=== PATIENT | male | born 1950 | race Caucasian/White ===

== ENCOUNTER 2020-05-23 11:52 | Emergency (ER) | payer OTHER ==
[2020-05-23 12:08] VITALS: TEMP 98.4; BMI 36.5
--- NOTE | 2020-05-23 12:12 | PDOC ---
History of Present Illness - General Chief Complaint: Pain Stated Complaint: FOOT PAIN,HTN Time Seen by Provider: 05/23/20 11:59 History Source: Patient Exam Limitations: No Limitations - History of Present Illness Initial Comments: 05/23/20 12:00 [id number] with h/o HTN (used to be on lisinopril but has not been taking it x1 month because he does like his PCP and stopped going, and has since run out of medication) and recurrent bronchitis (once every spring and once every fall, and always clears up with Z-pack) who was instructed by to come into the ED for swelling and burning sensation in both of his feet for the past two weeks, in the setting of mild persistent BELTRAN for the past month and high BP measured at (provider called in to the ED and stated up to 170s systolic). The patient additionally notes an estimated 10-20 lb weight gain over the past month or so (has not weighed himself but states he is retaining water). Also notes itching in both ankles and a bit in the LUE with occasional small red bumps. Denies any recent calf pain, f/c/n/v/d/c, chest pain, palpitations, back pain, abdominal pain, lightheadedness, orthopnea, cough, headache, n/t/w focally, or other issues. Past History - Medical History Allergies/Adverse Reactions: Allergies Allergy/AdvReac Type Severity Reaction Status Date / Time No Known Allergies Allergy Verified 05/23/20 11:52 Home Medications: Ambulatory Orders Diphenhydramine HCl/Zinc Acet [Benadryl 2% Cream] 1 applic TP DAILY PRN #1 tube 05/23/20 Lisinopril [Prinivil -] 40 mg PO DAILY #30 tablet 05/23/20 Diphenhydramine [Benadryl -] 50 mg NR BID PRN #14 capsule 05/24/20 Prednisone [Prednisone 50 MG TABLETS] 50 mg PO DAILY #3 tablet 05/24/20 COPD: No HTN: Yes - Psycho-Social/Smoking History Smoking History: Never smoked Have you smoked in the past 12 months: No Review of Systems - Review of Systems Able to Perform ROS?: Yes Comments:: 05/23/20 12:19 GEN: no fever, chills, malaise, or generalized weakness HEENT: no ear pain, congestion, sore throat, vision change, or eye pain CV: no chest pain, palpitations, lightheadedness, or syncope RESP: BELTRAN, no orthopnea, wheezing, or cough GI: no abdominal pain, nausea, vomiting, diarrhea, constipation, or rectal bleed : no dysuria, hematuria, or discharge MSK: ankle and foot swelling, no muscle weakness or pain, no joint swelling or pain NEURO: no headache, vertigo, numbness, tingling, or focal weakness PSYCH: no SI, HI, or behavior change SKIN: itching, no jaundice, or unexplained bruises ROS otherwise negative except as noted in HPI *Physical Exam - Vital Signs 05/23/20 12:20 Initial Vital Signs Temp Pulse Resp BP Pulse Ox 98.4 F 93 H 20 173/112 H 98 05/23/20 11:52 05/23/20 11:52 05/23/20 11:52 05/23/20 11:52 05/23/20 11:52 - Physical Exam 05/23/20 12:20 GENERAL: well-appearing, pleasant, intelligent, A/Ox4, no distress, answers que stions appropriately, obese HEENT: PERRLA, EOMI, moist mucous membranes NECK/BACK: no midline ttp, no spinal step-off or deformity, no hematoma, full ROM, neck supple CARDIOVASCULAR: regular rate/rhythm, no MGR, strong peripheral pulses, capillary refill <2 seconds, extremities wwp, BLE 2+ pitting edema to distal calf LUNGS/RESPIRATORY: no respiratory distress, CTAB GI/ABDOMEN: abdomen protuberant, symmetric [id number], normoactive BS, soft, no ttp, no midline pulsatile masses : no CVA tenderness MSK/EXTREMITIES: no muscle atrophy, no acute deformity, no calf tenderness, negative Bladimir's sign, calves are equal circumference bilaterally SKIN: distal BLE and proximal LUE with 1mm diameter occasional scattered red lesions which he states are itchy, no overlying excoriations, warm and dry, no pallor, no jaundice, no pathologic-appearing bruising, no skin breakdown, no cuts NEUROLOGICAL: GCS 15, CN II-XII grossly intact, 5/5 strength proximally and distally, no facial droop Heart Score/ECG Review #1 05/23/20 12:21 Normal sinus rhythm, rate 89, normal axis and intervals, no ischemic ST-T changes ED Treatment Course - LABORATORY CBC & Chemistry Diagram: 05/23/20 12:30 05/23/20 12:30 Medical Decision Making - Medical Decision Making 05/23/20 13:08 Pt with h/o CHF who p/w SOB, cough, orthopnea same as their prior CHF. Initial Vital Signs Temp Pulse Resp BP Pulse Ox 98.4 F 93 H 20 173/112 H 98 05/23/20 11:52 05/23/20 11:52 05/23/20 11:52 05/23/20 11:52 05/23/20 11:52 DDX IBNLT: most likely CHF exacerbation, less likely PNA/bronchitis as this does not normally cause BLE edema, less likely but possible anemia. The patient has no chest pain but given poorly controlled HTN and BLE edema will work up for ACS and MARA. Unlikely malignancy, unlikely PE without history or risk factors. Possible allergic reaction e.g. contact dermatitis explaining the itching and small scattered raised lesions . The patient does not fit the clinical picture of pulmonary edema given that he looks well and has normal lung exam and only mild BELTRAN x1 month. RAD/CHEST X-RAY PORTABLE* AP portable chest: Shortness of breath A single apical lordotic view reveals clear well aerated lungs, normal mediastinum and sharp angles. The bones and soft tissues are intact. An acute process is not seen. Impression: No acute chest pathology. No change of an adverse nature since 02/08/2020. Provider Orders Category Date Time Status ELECTROCARDIOGRAM [CARD] Stat Cardiology 05/23/20 12:01 Completed EKG needed NOW Care 05/23/20 12:03 Completed BNP [N-TERMINAL BNP] Stat Lab 05/23/20 12:30 Completed CBC WITH DIFFERENTIAL Stat Lab 05/23/20 12:30 Completed COMP METABOLIC PANEL Stat Lab 05/23/20 12:30 Completed MAGNESIUM Stat Lab 05/23/20 12:30 Completed TROPONIN I (DFP) Stat Lab 05/23/20 12:30 Completed Lisinopril [Prinivil] Medication 05/23/20 13:38 Discontinued 40 mg PO ONCE ONE predniSONE [Deltasone -] Medication 05/23/20 13:39 Discontinued 40 mg .ROUTE .STK-MED ONE predniSONE [Deltasone -] Medication 05/23/20 13:36 Discontinued 40 mg PO ONCE ONE CHEST X-RAY PORTABLE* [RAD] Stat Radiology 05/23/20 12:01 Completed Medications Discontinued Medications Generic Name Dose Route Start Last Admin Trade Name Laxmi PRN Reason Stop Dose Admin Lisinopril 40 mg 05/23/20 13:38 05/23/20 13:42 Prinivil PO 05/23/20 13:39 40 mg ONCE ONE Administration Prednisone 40 mg 05/23/20 13:36 05/23/20 13:42 Deltasone - PO 05/23/20 13:37 40 mg ONCE ONE Administration Prednisone Confirm 05/23/20 13:39 Deltasone - Administered 05/23/20 13:40 Dose 40 mg .ROUTE .STK-MED ONE Lab Results WBC 7.1 K/mm3 (4.0-10.8) 05/23/20 12:30 RBC 5.16 M/mm3 (4.00-5.60) 05/23/20 12:30 Hgb 16.7 GM/dl (11.7-16.9) 05/23/20 12:30 Hct 49.7 % (35.4-49) H 05/23/20 12:30 MCV 96.3 fl (80-96) H 05/23/20 12:30 MCH 32.3 pg (25.7-33.7) 05/23/20 12:30 MCHC 33.5 g/dl (32.0-35.9) 05/23/20 12:30 RDW 12.7 % (11.9-15.9) 05/23/20 12:30 Plt Count 140 K/MM3 (134-434) 05/23/20 12:30 MPV 11.2 fl (7.5-11.1) H 05/23/20 12:30 Absolute Neuts (auto) 3.6 K/mm3 05/23/20 12:30 Neutrophils % 50.2 % (42.8-82.8) 05/23/20 12:30 Lymphocytes % 26.7 % (8-40) 05/23/20 12:30 Monocytes % 7.6 % (3.8-10.2) 05/23/20 12:30 Eosinophils % 14.5 % (0-4.5) H D 05/23/20 12:30 Basophils % 1.0 % (0-2.0) 05/23/20 12:30 Sodium 137 mmol/L (136-145) 05/23/20 12:30 Potassium 4.1 mmol/L (3.5-5.1) 05/23/20 12:30 Chloride 105 mmol/L (98-107) 05/23/20 12:30 Carbon Dioxide 24 mmol/L (21-32) 05/23/20 12:30 Anion Gap 8 MMOL/L (8-16) 05/23/20 12:30 BUN 10.0 mg/dl (7-18) 05/23/20 12:30 Creatinine 1.2 mg/dl (0.55-1.3) 05/23/20 12:30 Est GFR (CKD-EPI)AfAm 71.58 05/23/20 12:30 Est GFR (CKD-EPI)NonAf 61.76 05/23/20 12:30 Random Glucose 133 mg/dl (74-106) H 05/23/20 12:30 Calcium 8.9 mg/dl (8.5-10) 05/23/20 12:30 Magnesium 1.6 mg/dL (1.8-2.4) L 05/23/20 12:30 Total Bilirubin 1.1 mg/dl (0.2-1) H 05/23/20 12:30 AST 39 U/L (15-37) H 05/23/20 12:30 ALT 43 U/L (13-61) 05/23/20 12:30 Alkaline Phosphatase 58 U/L (45-117) 05/23/20 12:30 Troponin I < 0.03 ng/ml (0.00-0.05) 05/23/20 12:30 B-Natriuretic Peptide 22.7 pg/ml (5-125) 05/23/20 12:30 Total Protein 6.6 g/dl (6.4-8.2) 05/23/20 12:30 Albumin 3.8 g/dl (3.4-5.0) 05/23/20 12:30 The patient does not appear to have emergency-level CHF symptoms or workup at this time. He is aware, though, that his symptoms may be d/t prolonged uncontrolled HTN and he is amenable to following up with [facility], as he does not want to return to his old PCP. I give him a prescription for his antihypertensive medications which he was on previously and he will take these in the meantime and make an ER follow-up appointment with [facility]. Specific return precautions are discussed and they will come back to the ER if necessary. Discharge - Discharge Information Problems reviewed: Yes Clinical Impression/Diagnosis: Leg swelling, BELTRAN (dyspnea on exertion) HTN (hypertension) Qualifiers: Hypertension type: unspecified Qualified Code(s): I10 - Essential (primary) hypertension Condition: Stable Disposition: HOME - Admission No - Additional Discharge Information Prescriptions: Diphenhydramine HCl/Zinc Acet [Benadryl 2% Cream] 1 applic TP DAILY PRN #1 tube PRN Reason: Allergies Lisinopril [Prinivil -] 40 mg PO DAILY #30 tablet - Follow up/Referral Referrals: [facility] [place] [Provider Group] - Patient Discharge Instructions Patient Printed Discharge Instructions: DI for Peripheral Edema -- Bilateral Additional Instructions: You were seen in the ER for leg swelling, shortness of breath on exertion, and high blood pressure. We did a full set of lab work, an electrocardiogram, and a chest x-ray. Fortunately, there are no concerning abnormalities at this time and we do believe you are safe to go home today. We are sending a one-month prescr iption for your lisinopril to your pharmacy, so please pick this up and take it exactly as prescribed (should be the exact same prescription you were on before). We are giving you referral information for the internal medicine clinic in [place], so please call the number provided [facility] and make a follow-up appointment. If you tell them you were seen in the ER and need quick follow-up, they should be able to see you very soon. If you have any new or worsening symptoms, such as chest pain, palpitations, shortness of breath at rest, inability to lay down flat due to shortness of breath, or worsening leg swelling, come back to the ER. - Post Discharge Activity Work/Back to School Note: Back to Work
[2020-05-23 12:42] LABS: EOS % 14.5 % (0-4.5); HEMATOCRIT 49.7 % (35.4-49); HEMOGLOBIN 16.7 GM/dl (11.7-16.9); LYMPH % 26.7 % (8-40); MCH 32.3 pg (25.7-33.7); MCHC 33.5 g/dl (32.0-35.9); MEAN CELL VOLUME 96.3 fl (80-96); MEAN PLT VOLUME 11.2 fl (7.5-11.1); MONO % 7.6 % (3.8-10.2); NEUT % 50.2 % (42.8-82.8); PLATELET COUNT 140 K/MM3 (134-434); RBC 5.16 M/mm3 (4.00-5.60); RDW 12.7 % (11.9-15.9); WHITE BLOOD COUNT 7.1 K/mm3 (4.0-10.8)
[2020-05-23 13:02] LABS: ALBUMIN 3.8 g/dl (3.4-5.0); BILIRUBIN,TOTAL 1.1 mg/dl (0.2-1); CALCIUM 8.9 mg/dl (8.5-10); CREATININE 1.2 mg/dl (0.55-1.3); MAGNESIUM 1.6 mg/dL (1.8-2.4); POTASSIUM 4.1 mmol/L (3.5-5.1); TOT PROT 6.6 g/dl (6.4-8.2)
[2020-05-23 13:04] VITALS: BP 151/93; PULSE 78
[2020-05-23] MEDS ORDERED: predniSONE 20 MG TABLET (UD) PO ONE (13:36)
[2020-05-23] MEDS ORDERED: LISINOPRIL 20 MG TABLET (FP) PO ONE (13:38)
[2020-05-23] MEDS ORDERED: predniSONE 20 MG TABLET (UD) ONE (13:39)
[2020-05-23 15:28] LABS: N-TERMINAL BNP 22.7 pg/ml (5-125)
--- NOTE | 2020-05-23 15:29 | EKG ---
Test Reason : Blood Pressure : / mmHG Vent. Rate : 089 BPM Atrial Rate : 089 BPM P-R Int : 118 ms QRS Dur : 072 ms QT Int : 360 ms P-R-T Axes : 072 043 026 degrees QTc Int : 438 ms NORMAL SINUS RHYTHM NORMAL ECG WHEN COMPARED WITH ECG OF 08-FEB-2020 11:29, NO SIGNIFICANT CHANGE WAS FOUND Confirmed by BRAULIO OWUSU MD ([id number]) on 05/23/2020 3:29:01 PM Referred By: JANE WEAVER Confirmed By:BRAULIO OWUSU MD
== END 2020-05-23 13:44 | disposition home or self-care (01) ==
LOC: FER 11:52
DX: R22.41 Localized swelling, mass and lump, right lower limb (principal); R22.42 Localized swelling, mass and lump, left lower limb; I10 Essential (primary) hypertension; R06.02 Shortness of breath
CPT/HCPCS: 36415; 71045-TC-FY; 80053; 83735; 83880; 84484; 85025; 93005; 99285-25

== ENCOUNTER 2020-05-24 20:34 | Emergency (ER) | payer OTHER ==
[2020-05-24 21:06] VITALS: BP 149/106; PULSE 87; TEMP 98.1; BMI 36.5
[2020-05-24] MEDS ORDERED: DEXAMETHASONE SOD PHOSPHATE 10 MG/1 ML VIAL IM ONE (21:37)
[2020-05-24] MEDS ORDERED: DEXAMETHASONE SOD PHOSPHATE 10 MG/1 ML VIAL ONE (21:40)
--- NOTE | 2020-05-24 22:21 | PDOC ---
Documentation entered by Riccardo Diego SCRIBE, acting as scribe for Renato Tomas MD. Renato Tomas MD: This documentation has been prepared by the Brandie selby Angel, SCRIBE, under my direction and personally reviewed by me in its entirety. I confirm that the documentation accurately reflects all work, treatment, procedures, and medical decision making performed by me. History of Present Illness - General Chief Complaint: Redness To Affected Area Stated Complaint: REDNESS IS SPREADING Time Seen by Provider: 05/24/20 20:42 History Source: Patient Exam Limitations: No Limitations - History of Present Illness Initial Comments: 05/24/20 21:58 The patient is a 69 year old male with a significant past medical history of HTN who presents to the ED with rash. The patient states he was here in the ED recently for bilateral feet swelling and redness over the past 2 weeks. The patient was given Benadryl cream. After being discharged, later the same day he developed itchy/burning rashes going up both legs from his feet and his upper extremities. The patient denies any new medications, foods, clothes, or detergents. However, he states he did get a flu shot yesterday. The patient denies SOB, fever/chills, N/V/D or any other symptoms here in the ED. Past History - Medical History Allergies/Adverse Reactions: Allergies Allergy/AdvReac Type Severity Reaction Status Date / Time No Known Allergies Allergy Verified 05/23/20 11:52 Home Medications: Ambulatory Orders Diphenhydramine HCl/Zinc Acet [Benadryl 2% Cream] 1 applic TP DAILY PRN #1 tube 05/23/20 Lisinopril [Prinivil -] 40 mg PO DAILY #30 tablet 05/23/20 COPD: No HTN: Yes - Immunization History Immunization Up to Date: No - Psycho-Social/Smoking History Smoking History: Never smoked Have you smoked in the past 12 months: No - Substance Abuse Hx (Audit-C & DAST Scrn) How often the patient has a drink containing alcohol: 4 0r more times/wk Number of drinks the patient has on a typical day: 3 or 4 How often the patient has six or more drinks on one occasion: Never Score: In Men: 4 or > Positive; In Women: 3 or > Positive: 5 Screen Result (Pos requires Nsg. Audit-10AR): Positive In the last yr the pt used illegal drug/Rx for NonMed reason: No Score: Yes response is considered Positive: 0 Screen Result (Positive result requires Nsg. DAST-10): Negative Review of Systems - Review of Systems Able to Perform ROS?: Yes Comments:: 05/24/20 21:58 GENERAL/CONSTITUTIONAL: No fever or chills. No weakness. HEAD, EYES, EARS, NOSE AND THROAT: No change in vision. No ear pain or discharge. No sore throat. CARDIOVASCULAR: No chest pain, no shortness of breath, no loss of consciousness RESPIRATORY: No cough, wheezing, or hemoptysis. GASTROINTESTINAL: No nausea, vomiting, diarrhea or constipation. GENITOURINARY: No dysuria, frequency, or change in urination. MUSCULOSKELETAL: No joint or muscle swelling or pain. No neck or back pain. SKIN: +Bilateral lower and upper extremity rash. NEUROLOGIC: No vertigo, no change in strength/sensation. ENDOCRINE: No increased thirst. No abnormal weight change. HEMATOLOGIC/LYMPHATIC: No anemia, easy bleeding, or history of blood clots. ALLERGIC/IMMUNOLOGIC: No hives or skin allergy. *Physical Exam - Vital Signs Last Vital Signs Temp Pulse Resp BP Pulse Ox 98.1 F 87 16 149/106 H 97 05/24/20 20:35 05/24/20 20:35 05/24/20 20:35 05/24/20 20:35 05/24/20 20:35 - Physical Exam 05/24/20 22:22 "GENERAL: Awake, alert, and fully oriented, in no acute distress. HEAD: No signs of trauma EYES: PERRLA, EOMI, sclera anicteric, conjunctiva clear ENT: Auricles normal inspection, hearing grossly normal, nares patent, oropharynx clear without exudates. Moist mucosa NECK: Nontender, no stepoffs, Normal ROM, supple, no lymphadenopathy, JVD, or masses LUNGS: Breath sounds equal, clear to auscultation bilaterally. No wheezes, and no crackles HEART: Regular rate and rhythm, normal S1 and S2, no murmurs, rubs or gallops ABDOMEN: Soft, nontender, normoactive bowel sounds. No guarding, no rebound. No masses EXTREMITIES: Normal range of motion, no edema. No clubbing or cyanosis. No cords, erythema, or tenderness NEUROLOGICAL: Cranial nerves II through XII intact. 5/5 strength and sensation in all extremities, Normal speech, normal gait, normal cerebellar function SKIN: + maculopapular rash to bilateral arms and legs, no palmar involvement Medical Decision Making - Medical Decision Making 05/24/20 22:22 69 M with apparent allergic reaction. Unknown trigger but possibly flu shot that he received yesterday. - Benadryl, decadron - Reassess 05/24/20 22:36 Pt notes improvement after benadryl and steroids Will DC with short course of prednisone and benadryl Pt is well appearing, with normal vitals. Clinically stable for DC at this time. I discussed the physical exam findings, ancillary test results and final diagnoses with the patient. I answered all of the patient's questions. The patient was satisfied with the care received and felt comfortable with the discharge plan and treatment plan. The patient agrees to follow up with the primary care physician within 24-72 hours. Discharge - Discharge Information Problems reviewed: Yes Clinical Impression/Diagnosis: Allergic reaction, Rash, Itching Condition: Good Disposition: HOME - Follow up/Referral Referrals: [facility] [Non Staff, Medical] - - Patient Discharge Instructions Patient Printed Discharge Instructions: DI for General Allergic Reactions Additional Instructions: You likely had an allergic reaction today. Take the benadryl and prednisone as prescribed. If you notice worsening rash, fevers, chills, or any other concerning symptoms, return to the ER immediately. Otherwise, follow up with an teacher education instructor within 1-2 weeks for further evaluation. Call the number provided to make an appointment. - Post Discharge Activity
== END 2020-05-24 22:47 | disposition home or self-care (01) ==
LOC: FER 20:34
PROC: 3E033GC Introduction of Other Therapeutic Substance into Peripheral Vein, Percutaneous Approach (ICD-10-PCS; principal; 2020-05-24)
PROC: 3E023GC Introduction of Other Therapeutic Substance into Muscle, Percutaneous Approach (ICD-10-PCS; 2020-05-24)
DX: R21 Rash and other nonspecific skin eruption (principal); T78.40XA Allergy, unspecified, initial encounter
CPT/HCPCS: 99284-25; J1100

== ENCOUNTER 2021-03-02 23:31 | Emergency (ER) | payer OTHER ==
[2021-03-02 23:49] VITALS: BP 148/95; PULSE 112; TEMP 98.1; BMI 33.4
[2021-03-02] MEDS ORDERED: AMOX TR/POT CLAV 875MG/125MG TABLETS (FP) PO ONE (23:59)
[2021-03-03] MEDS ORDERED: AMOX TR/POT CLAV 875MG/125MG TABLETS (FP) ONE (00:05)
== END 2021-03-03 00:12 | disposition home or self-care (01) ==
LOC: FER 23:31
DX: A46 Erysipelas (principal)
CPT/HCPCS: 99283-25

== ENCOUNTER 2022-03-26 14:08 | Emergency (ER) | payer OTHER ==
[2022-03-26 14:28] VITALS: BP 126/82; PULSE 96; TEMP 98.1; BMI 33.4
[2022-03-26] MEDS ORDERED: ACETAMINOPHEN 500 MG TABLET (FP) PO ONE (15:20)
[2022-03-26] MEDS ORDERED: ACETAMINOPHEN 500 MG TABLET (FP) ONE (15:42)
[2022-03-26] MEDS ORDERED: metroNIDAZOLE 250 MG TABLET PO ONE (17:15)
[2022-03-26] MEDS ORDERED: levoFLOXacin 750 MG TABLET PO SCH (17:15)
== END 2022-03-26 18:05 | disposition home or self-care (01) ==
LOC: FER 14:08 → SUPCPDRO 14:08 → FER 18:05
DX: K57.92 Diverticulitis of intestine, part unspecified, without perforation or abscess without bleeding (principal)
CPT/HCPCS: 74176-TC; 81003; 87077; 87086; 99284-25

== ENCOUNTER 2023-11-28 10:59 | Emergency (ER) | payer OTHER ==
[2023-11-28 11:23] VITALS: TEMP 98.1; BMI 36.5
[2023-11-28 11:36] LABS: HEMATOCRIT 50.3 % (35.4-49); HEMOGLOBIN 17.7 G/dL (11.7-16.9); MCH 34.4 pg (25.7-33.7); MCHC 35.1 g/dl (32.0-35.9); MEAN CELL VOLUME 97.9 fl (80-96); MEAN PLT VOLUME 9.9 fl (7.5-11.1); PLATELET COUNT 140.7 10^3/uL (134-434); RBC 5.14 10^6/uL (4.00-5.60); RDW 13.4 % (11.9-15.9); WHITE BLOOD COUNT 9.3 10^3/uL (4.0-10.8)
[2023-11-28 11:49] LABS: INR 1.03 (0.83-1.09); PROTHROMBIN TIME (PATIENT) 11.9 SEC (9.7-13.0)
[2023-11-28 11:50] LABS: PLATELET ESTIMATE ADEQUATE
[2023-11-28 12:12] LABS: ALBUMIN 4.5 g/dl (3.4-5.0); BILIRUBIN,TOTAL 0.7 mg/dl (0.2-1); CALCIUM 9.5 mg/dl (8.5-10.1); CREATININE 1.2 mg/dl (0.6-1.3); POTASSIUM 4.5 mmol/L (3.5-5.1); TOT PROT 6.9 g/dl (6.4-8.2)
[2023-11-28] MEDS: SODIUM CHLORIDE 1,000 ML IV STA (12:20)
[2023-11-28 15:14] VITALS: BP 138/76; PULSE 88; RESP 16
== END 2023-11-28 15:30 | disposition home or self-care (01) ==
LOC: FER 10:59
PROC: 3E0337Z Introduction of Electrolytic and Water Balance Substance into Peripheral Vein, Percutaneous Approach (ICD-10-PCS; principal; 2023-11-28)
DX: R07.89 Other chest pain (principal); I49.1 Atrial premature depolarization
CPT/HCPCS: 36415; 71045-TC-FY; 80053; 84443; 84484; 85027; 85610; 93005; 99285-25